=== PATIENT | male | born 1955 | race Hispanic/Latino ===

== ENCOUNTER 2019-04-29 06:53 | Day surgery (SDC) | payer OTHER ==
[2019-04-29] MEDS ORDERED: SODIUM CHLORIDE 0.9% 1000 ML 1,000 ML IV SCH (07:00)
--- NOTE | 2019-04-29 07:46 | Anesthesia Day of Surgery ---
Anesthesia Day of Surgery - Day of Surgery Patient Examined: Yes Patient H&P Reviewed: Yes Patient is NPO: Yes
--- NOTE | 2019-04-29 07:52 | Anesthesia Consultation ---
Anesthesia Consult and Med Hx Date of service: 04/29/19 - Airway Anesthetic Teeth Evaluation: Poor ROM Head & Neck: Adequate Mental/Hyoid Distance: Inadequate Mallampati Class: Class III Intubation Access Assessment: Possibly Difficult - Pulmonary Exam CTA: Yes - Cardiac Exam Cardiac Exam: RRR - Pre-Operative Health Status ASA Pre-Surgery Classification: ASA3 Proposed Anesthetic Plan: General, MAC - Pulmonary Hx Smoking: No - Other Systems Hx Cancer: Yes (Throat Ca. 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
[2019-04-29] MEDS ORDERED: WATER FOR IRRIG STERILE 250 ML BOTTLE IR ONE (08:37)
--- NOTE | 2019-04-29 09:32 | Procedure Note ---
Date of procedure: 05/30/19 Pre-op diagnosis: GERD/Dysphagia/Colon Polyp Screening Post-op diagnosis: other (Benign, Esophageal Stenosis (s/p Esophagel Dilation)/Moderate,Erosive Esophagitis/Gastritis/Multiple,Proximal Colon Polyps/Mild to Moderate Internal Hemorrhoids) Procedure: EGD with Biopst and Esophageal Balloon Dilation/Colonoscopy with Cold Biopsy and Cold Snare Polypectomy Anesthesia: MAC Surgeon: AIDA WHALEN Estimated blood loss: minimal Pathology: list Specimen disposition: to lab Condition: stable Disposition: same day (Treat with PPI. Hold blood thinners for 2 days; otherwise resume jhome medication. Soft diet for today and follow up in 1 to 2 weeks ([phone]).)
--- NOTE | 2019-04-29 09:33 | Post Anesthesia Evaluation ---
- Post Anesthesia Evaluation Patient Participated: Yes Airway Patent: Yes Stable Respiratory Function: Yes Nausea/Vomiting: No Temp > 96.8F: Yes Pain Manageable: Yes Adequeate Hydration: Yes Anesthesia Complications: No Block Receding Appropriately: Not Applicable Patient on Ventilator: No
[2019-04-29 09:57] VITALS: BP 110/66
[2019-04-29] MEDS ORDERED: PROPOFOL 200 MG/20 ML VIAL IV ONE (14:00)
[2019-04-29] MEDS ORDERED: fentaNYL 100 MCG/2 ML INJ ONE (14:00)
--- NOTE | 2019-04-29 14:40 | Operative Report ---
PROCEDURES: EGD with biopsy and status post balloon dilation using a 20 mm balloon. INDICATIONS: This is a 63-year-old white male who has a prior history of throat cancer for which he has had surgery as well as radiation and chemotherapy. Lately, he has been having some dysphagia and GERD symptoms. EGD was done to assess for the problem. DESCRIPTION OF PROCEDURE: Procedure was done after getting informed consent with MAC anesthesia. Instrument was passed through the hypopharynx into the esophagus, which showed moderate distal erosive esophagitis. Photodocumentation and biopsy was obtained at the end of the procedure. The distal esophagus was dilated with a 20 mm balloon that was maintained for a minute. The stomach showed antral erosion and gastritis. The pylorus was patent. The duodenum in the first and second portion appeared normal. Biopsy was done from the gastric antrum, gastric body and angular incisura to rule out for H. pylori. ASSESSMENT: 1. Gastroesophageal reflux disease symptoms, dysphagia, prior history of throat cancer, status post surgery, radiation and chemotherapy. 2. Moderate distal erosive esophagitis. 3. Mild benign esophageal stenosis, status post balloon dilation. 4. Gastric erosion, gastritis. PLAN: To treat the patient with PPI, have the patient to avoid aspirin and aspirin-related products and anticoagulants for an additional 2 days. The patient does have a prior history of DVT and PE and will be asked to stay the anticoagulants for an additional 2 days. Treat the patient with PPI, have the patient followup in the office in 1-2 weeks' time. A colonoscopy will also be done as part of colon polyp screening. Procedure was done in the GI lab with assistance of the GI lab team, which included, Lillie ____ and Jens jimenez and with assistance of anesthesia. JOB# [id number] MITCHEL/ANETTE
--- NOTE | 2019-04-29 14:43 | Operative Report ---
PROCEDURE: Colonoscopy. INDICATIONS: The procedure was done as part of colon polyp screening for 63-year-old white male who prior to the colonoscopy had an EGD with biopsy and esophageal dilation done. EGD had shown presence of moderate distal erosive esophagitis and benign esophageal stenosis, status post dilation; gastric erosion and gastritis. Colonoscopy was done as part of colon polyp screening. DESCRIPTION OF PROCEDURE: Procedure was done after getting informed consent. Initial rectal exam was unremarkable. Instrument was passed through the rectum onto the cecum, which was identified by the ileocecal valve and the appendiceal orifice. The terminal ileum was intubated showed normal mucosa. There was a small polyp noted in the cecum next to the appendiceal orifice, which was removed by using a cold biopsy and no additional pathology was noted in the cecum on the retroverted view. An additional cecal polyp about 9-10 mm in diameter and flat was removed by snare excision and there were a flat polyp about 8-9 mm in diameter in the ascending colon that was also removed by cold biopsy. The remaining part of the proximal colon, the transverse colon, the descending colon and the sigmoid showed normal mucosa. There was no evidence of any diverticular disease and the rectum showed [id number] internal hemorrhoid on the retroverted view. There was minimal bleeding associated with the procedure. No complications associated with the procedure. ASSESSMENT: Colonoscopy with snare excision and cold biopsy done. Colon polyps involving the cecum and the ascending colon, mild to moderate internal hemorrhoid. No diverticular disease noted. The patient will be asked to avoid aspirin and aspirin-related products and anticoagulants for 2 days. Treat the patient with PPI because of the EGD findings of esophagitis, gastritis and have the patient follow up in the office in 1-2 weeks' time. The procedure was done in the GI lab with assistance of the GI lab team, which included Lillie VELAZQUEZ and Jens jimenez as well as with the assistance of anesthesia. JOB# [id number] MITCHEL/ANETTE PINO
== END 2019-04-29 06:54 | disposition home or self-care (01) ==
LOC: GIO 06:53
DX: Z12.11 Encounter for screening for malignant neoplasm of colon (principal); D12.0 Benign neoplasm of cecum; K31.89 Other diseases of stomach and duodenum; K57.30 Diverticulosis of large intestine without perforation or abscess without bleeding; K21.0 Gastro-esophageal reflux disease with esophagitis; K29.50 Unspecified chronic gastritis without bleeding; R13.10 Dysphagia, unspecified; K64.8 Other hemorrhoids; Z85.89 Personal history of malignant neoplasm of other organs and systems; Z87.891 Personal history of nicotine dependence; Z86.711 Personal history of pulmonary embolism; Z98.890 Other specified postprocedural states; Z80.0 Family history of malignant neoplasm of digestive organs
CPT/HCPCS: 43239; 43249; 45380; 45385; 88305; 88342; J2704; J3010; J7030